=== PATIENT | male | born 1955 | race Caucasian/White ===

== ENCOUNTER 2018-09-18 19:05 | Inpatient (IN) | payer MEDICARE, OTHER ==
[~2018-09-18] VITALS: Ht 182.9 cm; Wt 64.0 kg
[2018-09-18] MEDS ORDERED: diphenhydrAMINE 50 MG/1 ML VIAL ONE (19:37)
[2018-09-18] MEDS ORDERED: LORAZEPAM 2 MG/1 ML VIAL ONE (19:38)
[2018-09-18] MEDS ORDERED: HALOPERIDOL LACTATE 5 MG/1 ML VIAL ONE (19:38)
[2018-09-18] MEDS ORDERED: diphenhydrAMINE 50 MG/1 ML VIAL IM ONE (19:45)
[2018-09-18] MEDS ORDERED: HALOPERIDOL LACTATE 5 MG/1 ML VIAL IM ONE (19:45)
[2018-09-18] MEDS ORDERED: LORAZEPAM 2 MG/1 ML VIAL IM ONE (19:45)
--- NOTE | 2018-09-18 20:00 | NUR ---
Pt. BIB EMS for AMS, pt. is alert but does not respond to questions or follow commands, takes off gown repeatedly, is physically aggressive and does not comply w/ medical care, takes of EKG stickers, Policy Advisor notified, security placed at door,
--- NOTE | 2018-09-18 20:30 | NUR ---
Seed Cleaning Machine Operator states no sitter available, will continue to use security at bedside.
[2018-09-18 21:11] LABS: BASOPHILS % (AUTO) 0.4 % (0.0-2.0); EOSINOPHILS # (AUTO) 0.1 K/uL (0.0-0.7); EOSINOPHILS % (AUTO) 0.8 % (0.0-7.0); HEMATOCRIT 42.5 % (36.7-47.1); HEMOGLOBIN 14.4 g/dL (12.5-16.3); LYMPHOCYTES # (AUTO) 2.1 K/uL (20.0-40.0); LYMPHOCYTES % (AUTO) 28.8 % (20.5-51.5); MEAN CORPUSCULAR HEMOGLOBIN 29.4 uug (23.8-33.4); MEAN CORPUSCULAR HGB CONC 34 g/dL (32.5-36.3); MEAN CORPUSCULAR VOLUME 86.8 fL (73.0-96.2); MONOCYTES # (AUTO) 0.8 K/uL (2.0-10.0); MONOCYTES % (AUTO) 10.7 % (0.0-11.0); NEUTROPHILS # (AUTO) 4.3 K/uL (1.8-8.9); NEUTROPHILS % (AUTO) 59.3 % (38.5-71.5); PLATELET COUNT (AUTO) 209 K/uL (152-348); WHITE BLOOD COUNT (AUTO) 7.3 K/uL (3.6-10.2)
[2018-09-18 21:18] LABS: CARBON DIOXIDE 26 mmol/L (21-32); CHLORIDE 106 mmol/L (98-107); CREATININE 1.1 mg/dL (0.6-1.3); GLUCOSE 101 mg/dL (74-106); UREA NITROGEN, BLOOD 25 mg/dL (7-18)
[2018-09-18 21:22] LABS: *BILIRUBIN,URIN NEGATIVE (NEGATIVE); *BLOOD, URINE NEGATIVE (NEGATIVE); *CLARITY,URINE CLEAR (CLEAR); *COLOR,URINE YELLOW (YELLOW); *KETONES,URINE NEGATIVE (NEGATIVE); *UROBILINOGEN,URINE 0.2 E.U./dl (NORMAL); LEUKOCYTE ESTERASE ,URINE NEGATIVE (NEGATIVE); NITRITE, URINE NEGATIVE (NEGATIVE); UGLUCOSE NEGATIVE (NEGATIVE)
[2018-09-18 21:24] LABS: ALANINE AMINOTRANSFERASE 33 U/L (16-63); ALKALINE PHOSPHATASE 66 U/L (50-136); ASPARTATE AMINOTRANSFERASE 16 U/L (15-37); BILIRUBIN,DIRECT 0.1 mg/dL (0.0-0.2); BILIRUBIN,TOTAL 0.3 mg/dL (0.2-1.0); TOTAL PROTEIN, SERUM 6.9 g/dL (6.4-8.2)
[2018-09-18 21:25] LABS: ACETAMINOPHEN < 2.0 ug/mL (10-30)
[2018-09-18 21:32] LABS: ETHANOL < 3 MG/DL (0-0)
[2018-09-18 21:33] LABS: *AMPHETAMINE, URINE NEGATIVE (NEGATIVE); *BARBITURATE, URINE NEGATIVE (NEGATIVE); *CANNABINOID, URINE NEGATIVE (NEGATIVE); *COCCAINE, URINE NEGATIVE (NEGATIVE); *OPIATE, URINE NEGATIVE (NEGATIVE); *PHENCYCLIDINE SCREEN,URINE NEGATIVE (NEGATIVE)
[2018-09-18 21:39] LABS: MUCUS,URINE FEW /LPF (0-FEW); URINE AMORPHOUS PHOSPHATES FEW /HPF; WBC,URINE 0-3 /HPF (0-3)
[2018-09-18] MEDS ORDERED: CLON0.1T PO (21:45)
[2018-09-18] MEDS ORDERED: OMEG1CAP18 PO (21:45)
[2018-09-18] MEDS ORDERED: MULT1TAB73 PO (21:45)
[2018-09-18] MEDS ORDERED: NA P133E RC (21:45)
[2018-09-18] MEDS ORDERED: LACT10SO PO (21:45)
[2018-09-18] MEDS ORDERED: VALP250S PO (21:45)
[2018-09-18] MEDS ORDERED: CLON1PAT2 TD (21:45)
[2018-09-18] MEDS ORDERED: MAGN400O6 PO (21:45)
[2018-09-18] MEDS ORDERED: ERGO500040 PO (21:45)
[2018-09-18] MEDS ORDERED: FINA5TAB3 PO (21:45)
[2018-09-18] MEDS ORDERED: CLON1TAB12 PO (21:45)
[2018-09-18] MEDS ORDERED: [UNRECOGNIZED DRUG - CODE] PO (21:45)
[2018-09-18] MEDS ORDERED: OLAN15TA3 PO (21:45)
[2018-09-18] MEDS ORDERED: TAMS-3 PO (21:46)
[2018-09-18] MEDS ORDERED: VITA400T9 PO (21:46)
[2018-09-18] MEDS ORDERED: TRAZ-214 PO (21:46)
[2018-09-18] MEDS ORDERED: PANT40TA2 PO (21:46)
[2018-09-18] MEDS ORDERED: ACET-2154 PO (21:46)
[2018-09-18 21:47] LABS: THYROID STIMULATING HORMONE 2.111 mIU/mL (0.358-3.740)
[2018-09-18] MEDS ORDERED: OLANZAPINE 10 MG VIAL IM ONE ×2 (22:00→22:01)
--- NOTE | 2018-09-18 22:23 | NUR ---
Pt. continues to be aggressive, yells "fuck you" repeatedly
--- NOTE | 2018-09-18 23:46 | NUR ---
Pt. still aggressive, banging on bed and yellow "shut up, shut up, shut up" and "fuck you, fuck you, fuck you" repetetively, security at bedside for pt. safety,
--- NOTE | 2018-09-19 00:10 | NUR ---
Called Janina for CE, left voicemail
--- NOTE | 2018-09-19 01:15 | NUR ---
Attempted to get VS, pt. does not obey commands, will not let VS be taken,
--- NOTE | 2018-09-19 01:59 | NUR ---
Amanda at bedside for CE
--- NOTE | 2018-09-19 02:50 | NUR ---
Gave report to Jojo pt. to admit to MHU, MRSA swab collected and sent to lab,
[2018-09-19] MEDS ORDERED: MAG HYDROX/AL HYDROX/SIMETH 30 ML LIQUID UDC PO PRN (03:15)
[2018-09-19] MEDS ORDERED: MAGNESIUM HYDROXIDE 30 ML LIQUID UDC PO PRN ×2 (03:15→13:00)
--- NOTE | 2018-09-19 03:25 | NUR ---
Pt. taken off unit for admit to MHU via stretcher, all belongings w/ pt., old chart w/ pt., NAD
--- NOTE | 2018-09-19 04:00 | NUR ---
AT APPROX 0315, ADMITTED 63 YEARS OLD MALE TO [facility] ON A 5150 FOR DTO AND GD. PATIENT LIVES AT [facility] AT [place] (). PER HOLD, PATIENT WAS OBSERVED YELLING, SCREAMING, COMBATIVE, THROWING THINGS AT STAFF, TORE THE CURTAINS AND SHEET OF HIS BED, UNABLE TO SLEEP. PATIENT WAS THEN TAKEN TO [facility] WHERE HE WAS MEDICALLY CLEARED FOR ADMISSION TO MHU. UPON ADMISSION, PATIENT WAS AWAKE, CONFUSED, DISORIENTED; UNABLE TO PROVIDED ANY INFORMATION AND UNABLE TO SIGN ANY OF HIS ADMISSION PAPERS. HEAD TO TOE ASSESSMENT WAS LIMITED DUE TO PATIENT POOR COMPLIANT; HOWEVER, IT WAS NOTED A RASH IN BOTH HIS ARMS. PATIENT IS UNDER THE CARE OF DR. RENDON AND RAMONA FONTANA. HE IS ON 1:1 SUPERVISION D/T FALL PRECAUTION AND COMBATIVE BX, UNABLE TO CFS. WE WILL CONTINUE TO MONITOR.
[2018-09-19 06:06] VITALS: BP 160/90
[2018-09-19 07:30] VITALS: BP 142/92
[2018-09-19] MEDS ORDERED: CLONAZEPAM 1 MG TABLET PO SCH (13:00)
[2018-09-19] MEDS ORDERED: FLEET ENEMA 133 ML BOTTLE RC PRN (13:00)
[2018-09-19] MEDS ORDERED: ACETAMINOPHEN 325 MG TABLET PO PRN (13:00)
[2018-09-19] MEDS: OLANZAPINE ZYDIS 5 MG TAB.RAPDIS PO SCH ×2 (13:57→23:53)
[2018-09-19] MEDS: CLONIDINE HCL 0.1 MG TABLET PO SCH ×3 (13:57→21:00)
[2018-09-19 16:00] VITALS: BP 179/99
--- NOTE | 2018-09-19 16:55 | NUR ---
REGARDING [facility] SAID ITS GIVEN WEEKLY AND WILL BE SCHEDULED FOR WEEKLY ADMINISTRATION
[2018-09-19] MEDS ORDERED: LORAZEPAM 2 MG/1 ML VIAL IM ONE (17:00)
[2018-09-19] MEDS ORDERED: HALOPERIDOL LACTATE 5 MG/1 ML VIAL IM ONE (17:00)
[2018-09-19] MEDS ORDERED: diphenhydrAMINE 50 MG/1 ML VIAL IM ONE (17:00)
[2018-09-19] MEDS: VALPROIC ACID 250 MG/5 ML LIQUID UDC GT SCH (18:07)
[2018-09-19] MEDS: CLONAZEPAM 0.5 MG TABLET PO SCH (18:39)
[2018-09-19 20:00] VITALS: BP 119/79
[2018-09-19] MEDS: PANTOPRAZOLE SODIUM 40 MG TABLET.DR PO SCH (21:00)
[2018-09-20 07:30] VITALS: BP 106/73
[2018-09-20] MEDS: VALPROIC ACID 250 MG/5 ML LIQUID UDC GT SCH (09:11)
[2018-09-20] MEDS: CLONIDINE HCL 0.1 MG TABLET PO SCH ×4 (09:13→21:00)
[2018-09-20] MEDS: CLONAZEPAM 0.5 MG TABLET PO SCH (09:13)
[2018-09-20] MEDS: FINASTERIDE 5 MG TABLET PO SCH (09:13)
[2018-09-20] MEDS: TAMSULOSIN HCL 0.4 MG CAP.SR.24H PO SCH (09:14)
[2018-09-20] MEDS: OLANZAPINE ZYDIS 5 MG TAB.RAPDIS PO SCH ×2 (09:14→20:00)
--- NOTE | 2018-09-20 09:47 | NUR ---
Gps/Packing Machine Inspector- Remains on 1:1 nursing spervision for safety. Patient restless, agitated, calling out. Routine am meds. was administered in increments, fluids offered, encouraged, patient hitting the butterfield, calling staff names. Constant redirections provided, safety continued to emphasized.
[2018-09-20] MEDS ORDERED: OLANZAPINE 10 MG VIAL IM ONE (10:45)
[2018-09-20] MEDS ORDERED: LORAZEPAM 2 MG/1 ML VIAL IM ONE (10:45)
--- NOTE | 2018-09-20 11:45 | NUR ---
Gps/Pleater Hand- Patient quiet down and fell asleep at this time, continue to monitor behavior and safety.
[2018-09-20] MEDS: CLONAZEPAM 1 MG TABLET PO SCH ×2 (13:00→17:39)
--- NOTE | 2018-09-20 15:05 | NUR ---
Gps/Wrapper Dipper- Patient sleeping unable to administer routine 1300 meds.reoffered.
--- NOTE | 2018-09-20 16:47 | NUR ---
Gps/Abstract Manager- Refusing vital signs this pm, gets agitated .
[2018-09-20] MEDS: VALPROIC ACID 250 MG/5 ML LIQUID UDC PO SCH (17:38)
--- NOTE | 2018-09-20 17:57 | NUR ---
Gps/Software Developer Manager- Noted patient likes ice cream pm meds. reoffered administered. Unable to administer clonidine , patient refusing to vital signs taken, b/p 103/73 this am. Patient remains to yell , using foul language, gets uncooperative with staff providing his care, gets resistive, and aggressive with staff. Incontinent of urine, throws diaper on the floor. Constant redirections/ safety continue to emphasized.
--- NOTE | 2018-09-20 18:00 | NUR ---
Gps/Sock Liner- Small abrasion to left small finger noted , per Sitter , patient was hitting the wall earlier today.Continue to monitor safety
[2018-09-20] MEDS: LORAZEPAM 0.5 MG TABLET PO PRN (19:19)
--- NOTE | 2018-09-20 19:20 | NUR ---
RECEIVED PATIENT IN HIS ROOM IN BED. HE CONTINUE ON 1:1 SUPERVISION FOR SAFETY PRECAUTION, AND FOR UNABLE TO CFS. HE IS NOTED RESTLESS, YELLING, SCREAMING AND BANGING THE WALL. PATIENT IS UNABLE TO BE REDIRECTED, IMPAIRED INSIGHT AND JUDGMENT IS NOTED TO THE REASON FOR HIS ADMISSION TO MHU. ATIVAN 0.5MG PO PRN WAS GIVEN. PATIENT IS ENCOURAGE TO VERBALIZED FEELINGS.
--- NOTE | 2018-09-20 20:00 | NUR ---
PATIENT NOTED LESS AGITATED BUT CONTINUE YELLING AT TIME. ZYPREXA 15MG PO QHS WAS GIVEN; WILL CONTINUE TO MONITOR.
[2018-09-20] MEDS: PANTOPRAZOLE SODIUM 40 MG TABLET.DR PO SCH (21:00)
[2018-09-20] MEDS: TEMAZEPAM 7.5 MG CAPSULE PO PRN (22:07)
[2018-09-21] MEDS: LORAZEPAM 0.5 MG TABLET PO PRN ×3 (01:01→21:06)
[2018-09-21] MEDS ORDERED: LORAZEPAM 2 MG/1 ML VIAL IM STA (02:53)
[2018-09-21] MEDS ORDERED: diphenhydrAMINE 50 MG/1 ML VIAL IM STA (02:53)
[2018-09-21] MEDS ORDERED: HALOPERIDOL LACTATE 5 MG/1 ML VIAL IM STA (02:53)
--- NOTE | 2018-09-21 03:15 | NUR ---
GPS: CHEMICAL RESTRAINS. AT APPROX 0115, PATIENT WAS NOTED TAKING HIS CLOTHES OFF, THROWING HIS PILLOW AND BLANKETS OUT OF HIS BED, RESTLESS AND ANXIOUS. ATIVAN 0.5MG PO PRN WAS GIVEN. HOWEVER, PATIENT CONTINUE YELLING, SCREAMING, BANGING THE PARRY. MULTIPLE REDIRECTION GIVEN. A SHOWER WAS ALSO GIVEN; HOWEVER; INEFFECTIVE. PATIENT CONTINUE YELLING, SCREAMING, CURSING, THROWING HIS SHEETS, TAKING HIS CLOTHES OFF, RESTLESS AND COMBATIVE, HE IS UNABLE TO BE REDIRECTED, UNABLE TO CFS. AT APPROX 0252, DR FORD WAS NOTIFY AND A NEW TELEPHONE ORDER WAS OBTAINED TO ADMINISTER ATIVAN 2MG IM, HALDOL 5MG IM AND BENADRYL 50MG IM. ORDER NOTED AND CARRIED OUT. WILL CONTINUE TO MONITOR.
--- NOTE | 2018-09-21 05:15 | NUR ---
PATIENT CONTINUE YELLING, SCREAMING, CURSING, AND BANGING THE PARRY AND TABLE. ATIVAN 0.5MG PO PRN WAS GIVEN. WILL CONTINUE TO MONITOR.
--- NOTE | 2018-09-21 06:32 | NUR ---
PATIENT NOTED LESS AGITATED, LESS ANXIOUS, LESS RESTLESS, LESS YELLING AND LESS BANGING PARRY AND TABLE. HE SLEPT FOR APPROX. 4.30 HRS THROUGH THE NIGHT. PT IS ENCOURAGE TO VERBALIZED FEELINGS. HE WILL CONTINUE ON 1:1 SUPERVISION.
[2018-09-21 07:30] VITALS: BP 140/91
[2018-09-21] MEDS: VALPROIC ACID 250 MG/5 ML LIQUID UDC PO SCH ×2 (08:18→16:49)
[2018-09-21] MEDS: FINASTERIDE 5 MG TABLET PO SCH (08:18)
[2018-09-21] MEDS: TAMSULOSIN HCL 0.4 MG CAP.SR.24H PO SCH (08:18)
[2018-09-21] MEDS: CLONAZEPAM 1 MG TABLET PO SCH ×4 (08:19→16:35)
[2018-09-21] MEDS: OLANZAPINE ZYDIS 5 MG TAB.RAPDIS PO SCH ×2 (08:19→20:08)
[2018-09-21] MEDS: ACETAMINOPHEN 325 MG TABLET PO PRN (08:19)
[2018-09-21] MEDS: CLONIDINE HCL 0.1 MG TABLET PO SCH ×5 (08:20→20:08)
--- NOTE | 2018-09-21 13:40 | NUR ---
Social work attempted to conduct social work assessment twice, pt was in deep sleep and did not respond to high school social studies tutor.
--- NOTE | 2018-09-21 15:46 | NUR ---
Pt is current conserved by his brother Johnny Italo ([phone]), conservator paperwork is filed in pts chart.
[2018-09-21 17:49] VITALS: BP 129/93
--- NOTE | 2018-09-21 18:43 | NUR ---
RECEIVED PATIENT ON CHAIR AWAKE, COMPLIANT WITH MEDICATION ON 1:1 SITTER FOR SAFETY, PATIENT BEEN MANAGEABLE, AND ABLE TO HAVE A GOOD SLEEP IN THE AFTERNOON, DENIES PAIN NO SOB NO DISCOMFORT NOTED, WILL CONTINUE MONITOR
[2018-09-21] MEDS: PANTOPRAZOLE SODIUM 40 MG TABLET.DR PO SCH (20:04)
[2018-09-21 20:38] VITALS: BP 113/74
--- NOTE | 2018-09-21 21:06 | NUR ---
received to care, at start of shift, lying in bed, talking to self quietly, appearing distracted by internal stimuli. 1;1 sitter at bedside, for safety. compliant with bedtime medications, snack, fluids, and staff direction. over the past 30 minutes or so, he has been yelling. kicking the mattress, and difficult to redirect. PRN ativan was given at this time. pt continues to yell. sitter remains at side, for safety. will continue to monitor closely.
--- NOTE | 2018-09-21 22:00 | NUR ---
appears to be asleep. no distress noted.
[2018-09-22] MEDS: LORAZEPAM 0.5 MG TABLET PO PRN ×4 (01:02→19:27)
[2018-09-22] MEDS: ACETAMINOPHEN 325 MG TABLET PO PRN ×3 (01:02→13:18)
--- NOTE | 2018-09-22 01:06 | NUR ---
pt is now awake, yelling intermittently. PRN ativan 1 mg. was given. sitter remains at bedside. will continue to monitor closely.
--- NOTE | 2018-09-22 01:45 | NUR ---
appears to be asleep. no distress noted.
--- NOTE | 2018-09-22 05:46 | NUR ---
pt has been awake, and yelling for about 30 minutes. difficult to redirect. PRN ativan 1 mg was given, along with a snack, and fluids. sitter remains at side. will continue to monitor closely.
--- NOTE | 2018-09-22 06:25 | NUR ---
remains awake. appears calmer, now. currently lying in bed, laughing intermittently. slept 3 hours, total.
[2018-09-22 07:30] VITALS: BP 119/62
[2018-09-22] MEDS: TAMSULOSIN HCL 0.4 MG CAP.SR.24H PO SCH (08:11)
[2018-09-22] MEDS: CLONAZEPAM 1 MG TABLET PO SCH ×3 (08:11→16:21)
[2018-09-22] MEDS: OLANZAPINE ZYDIS 5 MG TAB.RAPDIS PO SCH ×2 (08:11→20:01)
[2018-09-22] MEDS: VALPROIC ACID 250 MG/5 ML LIQUID UDC PO SCH ×2 (08:11→16:24)
[2018-09-22] MEDS: FINASTERIDE 5 MG TABLET PO SCH (08:12)
[2018-09-22] MEDS: CLONIDINE HCL 0.1 MG TABLET PO SCH ×4 (08:14→20:01)
[2018-09-22] MEDS ORDERED: ERGOCALCIFEROL 50,000 UNIT CAPSULE PO SCH (09:00)
[2018-09-22] MEDS ORDERED: MINERAL OIL/PETROLATUM,WHITE 57 GM TUBE TOP PRN (12:00)
[2018-09-22] MEDS ORDERED: Z GUARD REMEDY PASTE 57 GM TUBE TOP PRN (12:00)
--- NOTE | 2018-09-22 12:00 | NUR ---
WOUND CARE CONSULT: PT PRESENTS WITH VERY FAIR SENSITIVE SKIN WITH DRYNESS TO ARMS AND LEGS AND SOME SCRATCH LINO TO ARMS WELL SKIN CONDITION TO LEFT 5TH FINGER, PRESENT ON ADMISSION. PT STATES HAS ECZEMA. DEFER TO MD FOR FINGER. RECOMMENDATIONS MADE FOR DRY SKIN CARE AND PROTECTION. DISCUSSED WITH NURSING STAFF. WILL SEE PRN. LARA IN AGREEMENT WITH PLAN OF CARE. Addendum: 09/22/18 at 1201 by ASIA ESTEBAN RN Amended: Links added.
--- NOTE | 2018-09-22 12:41 | NUR ---
Initial Discharge Instructions: Patient is a current resident of [facility] ([facility]) [Address: [place] [address]; ]. Spoke with Kathy at the facility who states that the patient is on a 7-day bed hold. Dr. Prosper matthew Spoke with pt's brother/conservator, Johnny Puckett ([phone]) who would like patient to return to the facility when ready for discharge. SW will continue to collaborate with pt, family, and MD regarding most appropriate discharge plans for this patient. SW will form a safe and proper discharge plan.
[2018-09-22 16:33] VITALS: BP 93/66
--- NOTE | 2018-09-22 17:57 | NUR ---
RECEIVED PATIENT AWAKE ON BED,ON 1:1 SITTER FOR SAFETY, PATIENT CALM AND REDIRECTABLE, DENIES PAIN NO DISCOMFORT NOTED, SEEN AND EXAMINED BY REHAB WITH GAIT EXERCISE ORDERS MADE, PATIENT TOLERATED THE ACTIVITY, SEEN BY PSYCHIATRIST WITH NEW ORDERS MADE , PATIENT ALSO EXHIBIT TANTRUM LIKE EPISODE, PATIENT BANGS HIS TABLE AND SHOUT, HOWEVER REDIRECTABLE AND COMPLIANT TO HIS MEDICATION , SEEN BY WOUND NURSE WITH TREATMENT ORDERS, WILL CONTINUE MONITOR
[2018-09-22] MEDS: PANTOPRAZOLE SODIUM 40 MG TABLET.DR PO SCH (20:00)
[2018-09-22] MEDS: Z GUARD REMEDY PASTE 57 GM TUBE TOP SCH (20:02)
[2018-09-22 20:18] VITALS: BP 151/83
[2018-09-22] MEDS ORDERED: HALOPERIDOL LACTATE 5 MG/1 ML VIAL IM ONE (20:30)
[2018-09-22] MEDS ORDERED: LORAZEPAM 2 MG/1 ML VIAL IM ONE (20:30)
[2018-09-22] MEDS ORDERED: diphenhydrAMINE 50 MG/1 ML VIAL IM ONE (20:30)
--- NOTE | 2018-09-22 22:00 | NUR ---
received to care, at start of shift, up in sonny chair, yelling and cursing intermittently, difficult to redirect, 1;1 sitter at side, for safety. PRN ativan po was given at 1926, with no effects. his bedtime dose of zyprexa was given at 2000, but he became even more loud and restless. Dr Cheng was paged. orders were received, and he was given an IM injection of haldol 5 mg/ativan 2 mg/benadryl 50 mg at 2099. as of 2199, he continues to yell intermittently. appears slightly calmer. sitter remains at side. will continue to monitor closely.
--- NOTE | 2018-09-23 00:30 | NUR ---
appears calmer. appears to be dozing off. no yelling noted. assisted to bed. will continue to monitor closely.
--- NOTE | 2018-09-23 01:30 | NUR ---
appears to be asleep. no distress noted. sitter remains at side. will continue to monitor closely.
--- NOTE | 2018-09-23 06:46 | NUR ---
slept 1.45 hours total, but has been quiet and calm, since going to bed. no yelling noted. continues to sleep. sitter remains at side. no distress noted. will continue to monitor closely.
[2018-09-23] MEDS: Z GUARD REMEDY PASTE 57 GM TUBE TOP SCH ×2 (09:00→20:35)
[2018-09-23 10:00] VITALS: BP 121/86
[2018-09-23] MEDS: TAMSULOSIN HCL 0.4 MG CAP.SR.24H PO SCH (11:23)
[2018-09-23] MEDS: FINASTERIDE 5 MG TABLET PO SCH (11:24)
[2018-09-23] MEDS: OLANZAPINE ZYDIS 5 MG TAB.RAPDIS PO SCH ×2 (11:24→20:32)
[2018-09-23] MEDS: CLONAZEPAM 1 MG TABLET PO SCH ×3 (11:24→17:17)
[2018-09-23] MEDS: CLONIDINE HCL 0.1 MG TABLET PO SCH ×4 (11:24→20:34)
[2018-09-23] MEDS: VALPROIC ACID 250 MG/5 ML LIQUID UDC PO SCH ×2 (11:25→17:18)
[2018-09-23] MEDS: LORAZEPAM 0.5 MG TABLET PO PRN ×2 (12:27→19:43)
[2018-09-23 16:00] VITALS: BP 135/85
[2018-09-23] MEDS: GABAPENTIN 100 MG CAPSULE PO SCH (17:17)
--- NOTE | 2018-09-23 19:01 | NUR ---
patient continues to be non-cooperative with care. Patient woke up at 1030am till 12 pm and was constantly yelling and screaming, disrobing, and banging on the sides of the bed and trying to throw legs over the side. Sitter is at bedside for safety. Physician was notified of patients coughing with liquids and dry foods. Diet changed and speech eval ordered.
[2018-09-23 20:11] VITALS: BP 144/77
[2018-09-23] MEDS: PANTOPRAZOLE SODIUM 40 MG TABLET.DR PO SCH (20:34)
--- NOTE | 2018-09-23 22:00 | NUR ---
received to care, lying in bed, yelling and kicking the mattress, 1;1 sitter at side, for safety. PRN ativan was given at 1943, and was calmer by 2099, however he still continued to yell out intermittently. compliant with medications, food, and fluids. as of 2199, he continues to yell intermittently. sitter remains at side at all times. will continue to monitor closely.
[2018-09-24] MEDS: ACETAMINOPHEN 325 MG TABLET PO PRN (00:04)
[2018-09-24] MEDS: TEMAZEPAM 7.5 MG CAPSULE PO PRN ×2 (00:04→22:51)
--- NOTE | 2018-09-24 00:04 | NUR ---
continues to yell. is now kicking the bed, yelling "f--k you", and "maranda". difficult to redirect. PRN restoril was given, along with apple juice. will continue to monitor closely.
[2018-09-24 07:30] VITALS: BP 128/76
[2018-09-24] MEDS: FINASTERIDE 5 MG TABLET PO SCH (08:49)
[2018-09-24] MEDS: TAMSULOSIN HCL 0.4 MG CAP.SR.24H PO SCH (08:50)
[2018-09-24] MEDS: CLONAZEPAM 1 MG TABLET PO SCH ×3 (08:50→16:38)
[2018-09-24] MEDS: CLONIDINE HCL 0.1 MG TABLET PO SCH ×4 (08:50→20:45)
[2018-09-24] MEDS: GABAPENTIN 100 MG CAPSULE PO SCH ×3 (08:50→16:37)
[2018-09-24] MEDS: OLANZAPINE ZYDIS 5 MG TAB.RAPDIS PO SCH ×2 (08:50→20:38)
[2018-09-24] MEDS: VALPROIC ACID 250 MG/5 ML LIQUID UDC PO SCH ×2 (08:51→16:38)
[2018-09-24] MEDS: Z GUARD REMEDY PASTE 57 GM TUBE TOP SCH ×2 (09:25→20:53)
[2018-09-24] MEDS: LORAZEPAM 0.5 MG TABLET PO PRN (15:27)
--- NOTE | 2018-09-24 15:42 | NUR ---
Gps/Portfolio Administrator- Continue to have a 1:1 Nursing supervision for safety. Swallow precautions observed and in progress, thickened liquids to nectar consistency. All routine meds was crushed and given in ice cream. S.T in to evaluate patient for bedside swallow, patient not following directions, observed patient eating ice cream, no coughing noted.HOB was elevated during meals and when drinking liquids. Afebrile.
[2018-09-24 16:00] VITALS: BP 109/43
--- NOTE | 2018-09-24 19:35 | NUR ---
Received patient asleep in bed. Noted patient have aggressive episodes, hence 1:1 sitter at bedside for safety. Will ensures safety and comfort. Will continue to monitor. Noise and lights subdued.
[2018-09-24] MEDS: PANTOPRAZOLE SODIUM 40 MG TABLET.DR PO SCH (20:38)
[2018-09-24 20:46] VITALS: BP 110/70
--- NOTE | 2018-09-24 21:30 | NUR ---
Patient woke up and had dinner, all due medications given with meal. Patient cooperative at the moment.
--- NOTE | 2018-09-24 22:45 | NUR ---
Patient still awake, moving around in bed and screaming. PRN Sleeping medication given.
--- NOTE | 2018-09-25 00:20 | NUR ---
Noted patient still awake despite sleeping medication given and patient still screaming. PRN Ativan given per alecm.
[2018-09-25] MEDS: LORAZEPAM 0.5 MG TABLET PO PRN ×2 (00:24→17:47)
--- NOTE | 2018-09-25 01:30 | NUR ---
NSG/GPS Patient observed to have self injurious behavior, hitting table, bed, and yelling uncontrollable, disruptive towards patients. PRN's administered with ineffective outcome, psychiatrist consulted; orders obtained and carried out. Continue to monitor for safety.
--- NOTE | 2018-09-25 01:30 | NUR ---
Patient still awake and screaming despite all prn medications given. Contacted operations research analyst MD for possible medication orders to help calm patient down.
[2018-09-25] MEDS ORDERED: diphenhydrAMINE 50 MG/1 ML VIAL IM ONE (01:45)
[2018-09-25] MEDS ORDERED: HALOPERIDOL LACTATE 5 MG/1 ML VIAL IM ONE (01:45)
[2018-09-25] MEDS ORDERED: LORAZEPAM 2 MG/1 ML VIAL IM ONE (01:45)
--- NOTE | 2018-09-25 02:05 | NUR ---
Charge nurse, Nanette, received orders for IM injection of ativan, haldol and diphenhydramine - all administered. Will continue to monitor patient.
--- NOTE | 2018-09-25 06:04 | NUR ---
Patient slept 5.45 hours, after medication injection. No distress noted. No other untoward events noted. Still with 1:1 sitter at bedside for safety. Ensured safety and comfort.
[2018-09-25 07:30] VITALS: BP 99/69
[2018-09-25] MEDS: CLONIDINE HCL 0.1 MG TABLET PO SCH ×4 (08:05→20:40)
[2018-09-25] MEDS: VALPROIC ACID 250 MG/5 ML LIQUID UDC PO SCH ×2 (08:06→16:14)
[2018-09-25] MEDS: GABAPENTIN 100 MG CAPSULE PO SCH ×3 (08:06→16:14)
[2018-09-25] MEDS: OLANZAPINE ZYDIS 5 MG TAB.RAPDIS PO SCH ×2 (08:06→20:39)
[2018-09-25] MEDS: TAMSULOSIN HCL 0.4 MG CAP.SR.24H PO SCH (08:06)
[2018-09-25] MEDS: FINASTERIDE 5 MG TABLET PO SCH (08:06)
[2018-09-25] MEDS: CLONAZEPAM 1 MG TABLET PO SCH ×3 (08:06→16:14)
[2018-09-25] MEDS: Z GUARD REMEDY PASTE 57 GM TUBE TOP SCH ×2 (08:08→20:44)
[2018-09-25] MEDS: ACETAMINOPHEN 325 MG TABLET PO PRN ×2 (08:13→17:47)
[2018-09-25] MEDS ORDERED: CLONIDINE TTS 2 PATCH TD SCH (09:00)
[2018-09-25 16:00] VITALS: BP 123/79
--- NOTE | 2018-09-25 16:19 | NUR ---
Discharge Planning: rolled materials worker was notified that pt is to be discharged FridaySeptember 28. rolled materials worker contacted pts facility [facility] and spoke with Raquel in admissions Address: [place] [address] . Facility has been notified of pts discharge date. Transportations will be provided by the facility, spa experience coordinator Raquel confirmed that facility will provide transportation and cigar packer and picker time will be 12noon. rolled materials worker reached out to pts brother and conservator Johnny Puckett ([phone]) and notified brother of discharge date and time.
--- NOTE | 2018-09-25 17:57 | NUR ---
received patient on bed, asleep, with 1:1 sitter for safety,patient been asleep and calm in the morning compliant with meds and diet ,will continue to monitor
[2018-09-25] MEDS: PANTOPRAZOLE SODIUM 40 MG TABLET.DR PO SCH (20:37)
--- NOTE | 2018-09-26 06:26 | NUR ---
Remain calm and cooperative. showered this morning. assisted with adl's. patient remain awake most of the night due to slept long hrs daytime. continue plan of care.
[2018-09-26 07:30] VITALS: BP 133/85
[2018-09-26] MEDS: TAMSULOSIN HCL 0.4 MG CAP.SR.24H PO SCH (09:19)
[2018-09-26] MEDS: CLONIDINE HCL 0.1 MG TABLET PO SCH ×4 (09:20→21:13)
[2018-09-26] MEDS: OLANZAPINE ZYDIS 5 MG TAB.RAPDIS PO SCH ×2 (09:20→21:12)
[2018-09-26] MEDS: GABAPENTIN 100 MG CAPSULE PO SCH ×3 (09:20→16:05)
[2018-09-26] MEDS: CLONAZEPAM 1 MG TABLET PO SCH ×3 (09:20→16:05)
[2018-09-26] MEDS: Z GUARD REMEDY PASTE 57 GM TUBE TOP SCH ×2 (09:21→21:18)
[2018-09-26] MEDS: VALPROIC ACID 250 MG/5 ML LIQUID UDC PO SCH ×2 (09:21→16:06)
[2018-09-26] MEDS: FINASTERIDE 5 MG TABLET PO SCH (09:21)
[2018-09-26 16:00] VITALS: BP 129/81
--- NOTE | 2018-09-26 17:47 | NUR ---
RECEIVED PATIENT ASLEEP ON BED, PATIENT COMPLIANT WITH CARE HOWEVER, HAVING TANTRUMS AND SHOUT AND BANG THE BED, PATIENT DENIES ANY PAIN,PATIENT REPETITIVE,PATIENT UNABLE TO REDIRECT, PRN MEDS GIVEN WILL CONTINUE MONITOR
[2018-09-26] MEDS: LORAZEPAM 0.5 MG TABLET PO PRN (18:11)
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
[2018-09-26 20:03] VITALS: BP 151/94
[2018-09-26] MEDS ORDERED: chlorproMAZINE 50 MG/2 ML AMPUL IM ONE ×3 (20:15→21:00)
[2018-09-26] MEDS ORDERED: diphenhydrAMINE 50 MG/1 ML VIAL IM ONE (20:15)
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
[2018-09-26] MEDS ORDERED: chlorproMAZINE 50 MG/2 ML AMPUL ONE ×2 (21:10→21:42)
[2018-09-26] MEDS: TEMAZEPAM 7.5 MG CAPSULE PO PRN (21:12)
[2018-09-26] MEDS ORDERED: ALBUTEROL SULFATE 2.5 MG/3 ML NEBU NEB PRN (21:15)
[2018-09-26] MEDS: PANTOPRAZOLE SODIUM 40 MG TABLET.DR PO SCH (21:18)
--- NOTE | 2018-09-27 | NUR ---
pt remains in sonny chair at nursing station for close observation .
--- NOTE | 2018-09-27 04:00 | NUR ---
pt in bed asleep at this time no distress noted
[2018-09-27] MEDS: CLONIDINE HCL 0.1 MG TABLET PO SCH ×4 (09:00→20:37)
[2018-09-27] MEDS: TAMSULOSIN HCL 0.4 MG CAP.SR.24H PO SCH (09:03)
[2018-09-27] MEDS: CLONAZEPAM 1 MG TABLET PO SCH ×3 (09:03→16:39)
[2018-09-27] MEDS: VALPROIC ACID 250 MG/5 ML LIQUID UDC PO SCH ×2 (09:03→16:39)
[2018-09-27] MEDS: GABAPENTIN 100 MG CAPSULE PO SCH ×3 (09:03→16:38)
[2018-09-27] MEDS: Z GUARD REMEDY PASTE 57 GM TUBE TOP SCH ×2 (09:04→20:37)
[2018-09-27] MEDS: OLANZAPINE ZYDIS 5 MG TAB.RAPDIS PO SCH ×2 (09:07→20:36)
[2018-09-27] MEDS: FINASTERIDE 5 MG TABLET PO SCH (09:07)
[2018-09-27 10:00] VITALS: BP 137/109
[2018-09-27] MEDS: LORAZEPAM 0.5 MG TABLET PO PRN ×2 (12:12→21:05)
[2018-09-27 20:11] VITALS: BP 127/83
[2018-09-27 20:30] VITALS: BP 111/73
[2018-09-27] MEDS: PANTOPRAZOLE SODIUM 40 MG TABLET.DR PO SCH (20:36)
[2018-09-27] MEDS: ACETAMINOPHEN 325 MG TABLET PO PRN (20:39)
--- NOTE | 2018-09-27 20:55 | NUR ---
GPS Nursing Notes: Pt noted with VS: T 101.3 HR 125-130 RR 18 SpO2 refused pulse ox BP 111/73 Pain 0/10. Pt up in gerichair, appears drowsy. Did not tolerate swallowing his medications. Per report, patient with poor PO intake all day. Reported to VON Bojorquez. Maryellen will review his chart and put in orders./
[2018-09-27 21:27] LABS: BASOPHILS % (AUTO) 0.2 % (0.0-2.0); EOSINOPHILS % (AUTO) 0.1 % (0.0-7.0); HEMATOCRIT 45.4 % (36.7-47.1); HEMOGLOBIN 15.4 g/dL (12.5-16.3); LYMPHOCYTES # (AUTO) 0.4 K/uL (20.0-40.0); LYMPHOCYTES % (AUTO) 5.8 % (20.5-51.5); MEAN CORPUSCULAR HEMOGLOBIN 29.4 uug (23.8-33.4); MEAN CORPUSCULAR HGB CONC 34 g/dL (32.5-36.3); MEAN CORPUSCULAR VOLUME 86.9 fL (73.0-96.2); MONOCYTES # (AUTO) 0.7 K/uL (2.0-10.0); MONOCYTES % (AUTO) 9.6 % (0.0-11.0); NEUTROPHILS # (AUTO) 6.5 K/uL (1.8-8.9); NEUTROPHILS % (AUTO) 84.3 % (38.5-71.5); PLATELET COUNT (AUTO) 157 K/uL (152-348); RED BLOOD CELL COUNT(AUTO) 5.23 MIL/uL (4.06-5.63); WHITE BLOOD COUNT (AUTO) 7.7 K/uL (3.6-10.2)
[2018-09-27 21:30] VITALS: BP 118/72
[2018-09-27 21:30] LABS: CREATININE 1.1 mg/dL (0.6-1.3); POTASSIUM 3.7 mmol/L (3.5-5.1)
--- NOTE | 2018-09-27 23:00 | NUR ---
GPS Nursing Notes: Put pt back to bed. Attempted to place cooling measures while up in chair but pt just throws cold packs on floor along with his pillow. VS: 100.6 120 18 SpO2 refused BP refused. Labs drawn as ordered. Incontinent care rendered, applied Z-guard to eloise buttocks redness as ordered. All safety precautions in place. Will cont to monitor.
--- NOTE | 2018-09-28 05:17 | NUR ---
GPS Nursing Notes: Relayed pt's Procalcitonin level of 0.96H to VON Prince with new order for CXR in am. Relayed still pending collection of urine specimen via straight cath as pt is resistive. Telephone order read back and verified.
--- NOTE | 2018-09-28 05:34 | NUR ---
GPS Nursing Notes: Telephone call to Suresh, LEAD CASE MANAGER and relayed pt had negative CXR on 09/26 2099 that was ordered for wheezing which has resolved. Per Suresh, continue to CXR order to rule out if something has changed since then. No new orders at this time.
[2018-09-28 08:30] VITALS: BP 146/85
[2018-09-28] MEDS: CLONIDINE HCL 0.1 MG TABLET PO SCH ×2 (08:36→12:11)
[2018-09-28] MEDS: TAMSULOSIN HCL 0.4 MG CAP.SR.24H PO SCH (08:36)
[2018-09-28] MEDS: VALPROIC ACID 250 MG/5 ML LIQUID UDC PO SCH (08:36)
[2018-09-28] MEDS: FINASTERIDE 5 MG TABLET PO SCH (08:36)
[2018-09-28] MEDS: CLONAZEPAM 1 MG TABLET PO SCH ×2 (08:36→12:08)
[2018-09-28] MEDS: Z GUARD REMEDY PASTE 57 GM TUBE TOP SCH (08:39)
[2018-09-28] MEDS: OLANZAPINE ZYDIS 5 MG TAB.RAPDIS PO SCH (08:45)
[2018-09-28] MEDS: GABAPENTIN 100 MG CAPSULE PO SCH ×2 (08:48→12:08)
[2018-09-28] MEDS ORDERED: LEVOFLOXACIN 500 MG TABLET PO SCH (10:00)
--- NOTE | 2018-09-28 10:35 | NUR ---
spoke with Dr. Cheng due to pt wasn't medical clear until CXR and UA result coming back, per DR. Cheng pt still able to discharge back to SNF and continue follow up with PCP.
--- NOTE | 2018-09-28 10:52 | NUR ---
Discharge Note: Patient will be discharged back to his facility, [facility] [Address: [address] , [place] [address]; ] via private transportation at 2pm. Spoke with Kathy at the facility who has arranged transportation for the patient. Per Kathy, the facility is ready to accept the patient today. SW left a message for patients brother, Johnny Gist ([phone]) to alert him about patients discharge. Patient is alert and oriented x1 and is cooperative. Patient will follow-up at the facility with Dr. Styles (Paver) and Dr. Chi (Psychiatrist). Patient was provided with outpatient Mental Health Referrals to [facility] [[address], [place], [place]; [phone]]; [facility] ([phone]); National Suicide Prevention Lifeline ( ).
--- NOTE | 2018-09-28 10:59 | NUR ---
Firearms Report: DEEPA completed and submitted [employer] firearms report for 5150 DTO/GD certifications.
--- NOTE | 2018-09-28 11:43 | NUR ---
CXR RESULT RELAY TO JOY CORREA NP .
[2018-09-28 12:11] VITALS: BP 114/81
--- NOTE | 2018-09-28 14:16 | NUR ---
RECEIVED PATIENT AWAKE,COMPLIANT WITH MED, ASSIST WITH MEAL, PATIENT DENIES PAIN, NO SOB, AFEBRILE,STARTED ON PO ATB FOR INFECTION,FOR DC TODAY TO [facility], DC ORDERED WAS MADE BY PSYCHIATRIST, CARRIED OUT, GAVE REPORT TO DENNIS ANTHONY , WAITING FOR TRANSPORTATION, WILL CONTINUE MONITOR
--- NOTE | 2018-09-28 14:46 | NUR ---
DISCHARGED PATIENT TO [facility], WORD PROCESSOR TECHNICIAN BY TRANSPORTATION
== END 2018-09-28 14:45 | DRG 885 ==
LOC: ER 19:07 → GPS 09-19 03:03
PROVIDERS: ADMIT Psychiatry & Neurology Psychiatry
DX: F25.9 Schizoaffective disorder, unspecified (principal); F79 Unspecified intellectual disabilities; J15.9 Unspecified bacterial pneumonia; E78.5 Hyperlipidemia, unspecified; E03.9 Hypothyroidism, unspecified; E86.0 Dehydration; I10 Essential (primary) hypertension; F31.9 Bipolar disorder, unspecified; E88.09 Other disorders of plasma-protein metabolism, not elsewhere classified; F41.9 Anxiety disorder, unspecified
CPT/HCPCS: 36415; 70030-TC; 71045; 80164; 80307; 83605; 84443; 85025; 85730; 87040; 87086; 92526; 92610; 93005; 97110; 97116; 97530; A4663; C1758; G0480; G0480-TC; J1200; J1630; J2060; J2358; J3230